=== PATIENT | male | born 1975 | race American Indian/Alaskan Native ===

== ENCOUNTER 2017-02-15 17:21 | Emergency (ER) | payer OTHER ==
[2017-02-15] MEDS ORDERED: ALPRAZolam 1 MG Tab PO ONE (17:40)
[2017-02-15] MEDS ORDERED: ClonazePAM 0.5 MG Tab PO ONE (17:41)
[2017-02-15] MEDS ORDERED: Lithium Carbonate 300 MG Tab.ER PO ONE (17:42)
--- NOTE | 2017-02-15 17:49 | EDM.PDOCBH ---
ED HPI GENERAL MEDICAL PROBLEM - General Chief Complaint: Behavioral/Psych Stated Complaint: EVALUATION Time Seen by Provider: 02/15/17 17:39 Source of Information: Reports: Patient History Limitations: Reports: No Limitations - History of Present Illness INITIAL COMMENTS - FREE TEXT/NARRATIVE: 41-year-old male currently an inmate in the [facility] system presented to the ED at the request of nursing staff at that facility. Patient is feeling very restless and somewhat agitated today and concerns were voiced about possible side effects or toxicity of his medications. By history he has bipolar affective disorder and when he came into the Prison system 3 weeks ago he was not on any of his medications. He was introduced to amitriptyline 75 mg at bedtime which apparently has been taking as an outpatient and lithium 300 mg twice daily. Today he is feeling more restless and anxious and concerns were voiced about possible toxicity syndromes. He is also on sertraline 50 mg once daily. Previously he was on Cymbalta. Onset: Gradual, Unknown/Unsure Duration: Day(s): (Has felt more restless the last few days. Sleeps about 3 hours at bedtime only.) Location: Reports: Generalized Quality: Reports: Other (Restlessness.) Severity: Moderate Improves with: Reports: None Worsens with: Reports: None Context: Reports: Other (Currently in [facility] system.). Denies: Activity , Exercise, Lifting, Sick Contact, Trauma Associated Symptoms: Denies: Confusion, Chest Pain, Cough, cough w sputum, Diaphoresis, Fever/Chills, Headaches, Loss of Appetite, Malaise, Nausea/Vomiting , Rash, Seizure, Shortness of Breath, Syncope, Weakness Treatments ENVIRONMENTAL OFFICER: Reports: Other (see below) (None.) - Related Data Allergies Allergy/AdvReac Type Severity Reaction Status Date / Time No Known Allergies Allergy Verified 02/15/17 17:49 Home Meds: Home Meds [place] Carbonate 300 mg PO TID #90 capsule 02/15/17 [Rx] Sertraline [Zoloft] 50 mg PO DAILY 02/15/17 [History] traZODone HCl [Trazodone HCl] 100 mg PO DAILY #30 tablet 02/15/17 [Rx] Past Medical History Psychiatric History: Reports: Bipolar (With psychotic breaks.), Other (See Below ) (Chronic substance abuse.) Social & Family History - Living Situation & Occupation Occupation: Unemployed (Currently in the [employer] system.) ED ROS GENERAL - Review of Systems Review Of Systems: See Below Constitutional: Reports: Fatigue, Decreased Appetite. Denies: Fever, Chills, Malaise, Weakness, Weight Loss HEENT: Reports: No Symptoms Respiratory: Reports: No Symptoms Cardiovascular: Reports: No Symptoms Endocrine: Reports: No Symptoms GI/Abdominal: Reports: No Symptoms : Reports: No Symptoms Musculoskeletal: Reports: No Symptoms Skin: Reports: No Symptoms Neurological: Reports: Other. Denies: Confusion, Dizziness, Headache, Numbness , Paresthesia, Pre-Existing Deficit, Seizure, Syncope, Tingling, Tremors, Trouble Speaking, Difficulty Walking, Weakness Psychiatric: Reports: Agitation, Anxiety, Other (Restlessness. Pacing the floor) Hematologic/Lymphatic: Reports: No Symptoms Immunologic: Reports: No Symptoms ED EXAM, BEHAVIORAL HEALTH - Physical Exam Exam: See Below Exam Limited By: No Limitations General Appearance: Alert, WD/WN, No Apparent Distress Eye Exam: Bilateral Eye: Normal Inspection Throat/Mouth: Normal Inspection, Normal Lips, Normal Oropharynx Head: Atraumatic, Normocephalic Neck: Normal Inspection, Supple, Non-Tender, Full Range of Motion. No: Lymphadenopathy (L), Lymphadenopathy (R), Thyromegaly Respiratory/Chest: No Respiratory Distress, Lungs Clear, Normal Breath Sounds, No Accessory Muscle Use Cardiovascular: Normal Peripheral Pulses, Regular Rate, Rhythm, No Edema, No Murmur, No Rub GI/Abdominal: Normal Bowel Sounds, Soft, Non-Tender, No Organomegaly, No Abnormal Bruit (No surgical scars), No Mass, Other Back Exam: Normal Inspection, Full Range of Motion. No: CVA Tenderness (L), CVA Tenderness (R) Extremities: Normal Inspection, Normal Range of Motion, Non-Tender, No Pedal Edema, Normal Capillary Refill Neurological: Alert, Normal Mood/Affect, CN II-XII Intact, Normal Cognition, Normal Gait, Oriented x 3, Other (Mild diffuse hyperreflexia.). No: Normal Reflexes Psychiatric: Alert, Normal Affect, Normal Cognition, Oriented, Restless. No: Flat Affect, Incoherent, Tearful (Mild), Agitated, Inattentive, Non- Communicative, Poor Eye Contact, Uncooperative, Withdrawn, Flight of Ideas, Homicidal Thoughts, Church Delusions, Suicidal Plan, Suicidal Thoughts Skin Exam: Warm, Dry, Intact, Normal color, No rash EKG INTERPRETATION EKG Date: 02/15/17 Time: 17:55 Rhythm: NSR Rate (Beats/Min): 89 Hawley: LAD-Left Hawley Deviation P-Wave: Present (-83 left anterior fascicular block pattern) QRS: Other (Early R-wave transition consider right ventricular hypertrophy septal hypertrophy pattern.) ST-T: Normal QT: Normal COURSE, BEHAVIORAL HEALTH COMP - Course Vital Signs: Last Vital Signs Temp 36.2 C 02/15/17 17:37 Pulse 88 02/15/17 17:37 Resp 16 02/15/17 17:37 BP 127/89 02/15/17 17:37 Pulse Ox 98 02/15/17 17:37 Orders, Labs, Meds: Active Orders 24 hr Category Date Time Status EKG Documentation Completion [RC] STAT Care 02/15/17 17:40 Active DRUG SCREEN, URINE [URCHEM] Stat Lab 02/15/17 17:40 Uncollected LITHIUM [REF] Stat Lab 02/15/17 17:55 Received URINALYSIS W/MICROSCOPIC [UA W/MICROSCOPIC] [URIN] Stat Lab 02/15/17 17:39 Uncollected Laboratory Tests 02/15/17 02/15/17 Range/Units 17:55 17:55 WBC 7.24 (4.23-9.07) K/mm3 RBC 4.41 L (4.63-6.08) M/mm3 Hgb 14.0 (13.7-17.5) gm/L Hct 42.3 (40.1-51.0) % MCV 95.9 H (79.0-92.2) fl MCH 31.7 (25.7-32.2) pg MCHC 33.1 (32.2-35.5) g/dl RDW Std Deviation 43.4 (35.1-43.9) fL Plt Count 253 (163-337) K/mm3 MPV 9.5 (9.4-12.3) fl Neutrophils % (Manual) 56 (40-60) % Band Neutrophils % 0 (0-10) % Lymphocytes % (Manual) 37 (20-40) % Atypical Lymphs % 0 % Monocytes % (Manual) 3 (2-10) % Eosinophils % (Manual) 4 (0.8-7.0) % Basophils % (Manual) 0 L (0.2-1.2) Platelet Estimate Adequate RBC Morph Comment Normal Sodium 146 H (136-145) mEq/L Potassium 3.6 (3.5-5.1) mEq/L Chloride 109 H (98-107) mEq/L Carbon Dioxide 30 (21-32) mEq/L Anion Gap 10.6 (5-15) BUN 10 (7-18) mg/dL Creatinine 0.8 (0.7-1.3) mg/dL Est Cr Clr Drug Dosing 121.52 mL/min Estimated GFR (MDRD) > 60 (>60) mL/min BUN/Creatinine Ratio 12.5 L (14-18) Glucose 147 H (74-106) mg/dL Calcium 8.9 (8.5-10.1) mg/dL Total Bilirubin 0.2 (0.2-1.0) mg/dL AST 14 L (15-37) U/L ALT 21 (16-63) U/L Alkaline Phosphatase 64 (46-116) U/L Total Protein 7.1 (6.4-8.2) g/dl Albumin 3.7 (3.4-5.0) g/dl Globulin 3.4 gm/dL Albumin/Globulin Ratio 1.1 (1-2) TSH 3rd Generation 2.556 (0.358-3.74) uIU/mL Medications Discontinued Medications Generic Name Dose Route Start Last Admin Trade Name Freq PRN Reason Stop Dose Admin Alprazolam 1 mg 02/15/17 17:40 02/15/17 18:10 Xanax PO 02/15/17 17:41 1 mg ONETIME ONE Administration Clonazepam 1 mg 02/15/17 17:41 02/15/17 18:08 Klonopin PO 02/15/17 17:42 1 mg ONETIME ONE Administration [place] Carbonate 300 mg 02/15/17 17:42 02/15/17 18:09 Lithobid PO 02/15/17 17:43 300 mg ONETIME ONE Administration Re-Assessment/Re-Exam: 41-year-old male brought to the ER for evaluation of restlessness and mild agitation. Patient suffers from bipolar affective disorder and was recently started back on his medications of lithium 300 twice daily and sertraline 50 mg once a day and amitriptyline 75 at bedtime to help sleep. He is not sure why but he feels restless and somewhat agitated today. I found him to be cooperative and made good eye contact no signs of hallucinations no signs of drug toxicity. He is somewhat fidgety and restless. Therefore given Xanax 1 mg by mouth in the ED. As we establish that he actually is on current medications then the next choice would be to discontinue the amitriptyline at bedtime since due to its tremendous side effect profile. Replace it with trazodone 100 mg at bedtime. Increase the lithium to 300 mg 3 times daily to bring better control of his bipolar disorder. Routine labs including thyroid function and lithium levels will be obtained ECG to be done to check on QT interval. Re-Assessment/Re-Exam Date: 02/15/17 (ECG reveals a left anterior fascicular block pattern which is a variation of normal. There is early R-wave transition one considers right ventricular appeared to be or septal hypertrophy pattern possibly secondary to heavy smoking. QT interval is normal and therefore it is safe to make medication changes at this time. He will therefore be discharged back to the custodial system.) Departure - Departure Time of Disposition: 18:03 Disposition: Home, Self-Care 01 Condition: Fair Clinical Impression: Anxiety Bipolar affective disorder, current episode mild Qualifiers: Current bipolar episode type: mixed Qualified Code(s): F31.61 - Bipolar disorder, current episode mixed, mild - Discharge Information Prescriptions: [place] Carbonate 300 mg PO TID #90 capsule traZODone HCl [Trazodone HCl] 100 mg PO DAILY #30 tablet Instructions: Bipolar Disorder Referrals: PCP,None [Primary Care Provider] - Forms: ED Department Discharge Additional Instructions: Evaluation in the emergency room today in regards to medications being used to treat her bipolar affective disorder. When he came into the alf apparently her off all other medications. Apparently lithium has been reintroduced at 300 mg twice daily and I would suggest increasing it to 3 times daily due to current feelings of anxiety and restlessness. I would suggest discontinuing the amitriptyline 75 mg at bedtime due to its very strong side effect profile and substituting it with trazodone 100 mg at bedtime to help sleep. Sertraline at this time will be continued at 50 mg a day. While in the emergency room tonight he did receive a Xanax tablet to help relieve acute restlessness and mild agitation symptoms. There are no signs of toxicity from current medications at this time. - My Orders Last 24 Hours: My Active Orders 02/15/17 17:39 URINALYSIS W/MICROSCOPIC [UA W/MICROSCOPIC] [URIN] Stat 02/15/17 17:40 EKG Documentation Completion [RC] STAT DRUG SCREEN, URINE [URCHEM] Stat 02/15/17 17:55 LITHIUM [REF] Stat - Assessment/Plan Last 24 Hours: My Active Orders 02/15/17 17:39 URINALYSIS W/MICROSCOPIC [UA W/MICROSCOPIC] [URIN] Stat 02/15/17 17:40 EKG Documentation Completion [RC] STAT DRUG SCREEN, URINE [URCHEM] Stat 02/15/17 17:55 LITHIUM [REF] Stat
== END 2017-02-15 18:15 | disposition home or self-care (01) ==
LOC: JD.ED 17:21
DX: F41.9 Anxiety disorder, unspecified (principal); F31.61 Bipolar disorder, current episode mixed, mild; Z79.899 Other long term (current) drug therapy
CPT/HCPCS: 36415; 80053; 80178; 84443; 85025; 93005; 99284; A9270; 93010; 99283